=== PATIENT | female | born 1935 | race Two or more races ===

== ENCOUNTER 2019-09-20 21:11 | Emergency (ER) | payer OTHER ==
[~2019-09-20] VITALS: Ht 167.6 cm; Wt 68.9 kg
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
[2019-09-20 21:50] LABS: BASOPHILS % (AUTO) 0.6 % (0.0-2.0); EOSINOPHILS % (AUTO) 0.6 % (0.0-6.0); HEMATOCRIT 27 % (33-45); HEMOGLOBIN 8.7 g/dL (11.5-14.8); LYMPHOCYTES # (AUTO) 1.6 /CMM (0.8-4.8); LYMPHOCYTES % (AUTO) 36.2 % (20.0-44.0); MEAN CORPUSCULAR HGB CONC 32 g/dl (31.0-36.0); MEAN CORPUSCULAR VOLUME 84 fL (82-100); MONOCYTES # (AUTO) 0.4 /CMM (0.1-1.30); MONOCYTES % (AUTO) 9.3 % (2.0-12.0); NEUTROPHILS # (AUTO) 2.4 /CMM (1.8-8.9); NEUTROPHILS % (AUTO) 53.3 % (43.0-81.0); PLATELET COUNT (AUTO) 178 /CMM (150-450); RED BLOOD CELL COUNT(AUTO) 3.23 MIL/uL (4.0-5.2); WHITE BLOOD COUNT (AUTO) 4.5 K/uL (4.3-11.0)
--- NOTE | 2019-09-20 21:56 | NUR ---
PT IS GOING TO [place] [facility].
[2019-09-20 22:04] LABS: ALANINE AMINOTRANSFERASE 20 U/L (12-78); ALBUMIN 3.5 g/dL (3.4-5.0); ALKALINE PHOSPHATASE 66 U/L (46-116); ASPARTATE AMINOTRANSFERASE 18 U/L (15-37); BILIRUBIN,DIRECT 0.1 mg/dL (0.0-0.2); BILIRUBIN,TOTAL 0.2 mg/dL (0.2-1.0); CALCIUM, SERUM 8.6 mg/dL (8.5-10.1); CARBON DIOXIDE 23 mmol/L (21-32); CHLORIDE 103 mmol/L (98-107); CREATININE 1.9 mg/dL (0.6-1.3); GLUCOSE 146 mg/dL (74-106); POTASSIUM 6.1 mmol/L (3.5-5.1); SODIUM SERUM 134 mmol/L (136-145); TOTAL PROTEIN, SERUM 7.3 g/dL (6.4-8.2); UREA NITROGEN, BLOOD 41 mg/dL (7-18)
--- NOTE | 2019-09-20 22:16 | NUR ---
PT RETURNED FROM [place]. PT REQUESTED A DRINK OF WATER. PT REC'D 8 OZ OF WATER AND TOLERATED PO WELL.
[2019-09-20] MEDS ORDERED: METOPROLOL TARTRATE INJ 5 MG/5 ML AMPUL ONE (22:40)
[2019-09-20] MEDS ORDERED: METOPROLOL TARTRATE INJ 5 MG/5 ML AMPUL IV ONE (23:00)
--- NOTE | 2019-09-20 23:32 | NUR ---
2 PATIENT'S SON AT BEDSIDE
[2019-09-21] MEDS ORDERED: SODIUM POLYSTYRENE SULFONATE 15 G/60 ML BOTTLE RC ONE
[2019-09-21] MEDS ORDERED: SODIUM POLYSTYRENE SULFONATE 15 G/60 ML BOTTLE ONE (00:02)
--- NOTE | 2019-09-21 00:19 | NUR ---
KARLOS PHONE NUMBER [phone]
--- NOTE | 2019-09-21 03:18 | NUR ---
PER PAO: WAITING FOR [facility]NA[facility] TO ASSIGN BED AND REVIEW CLINICAL PACKET. WILL RETURN CALL SOON WITH MORE INFORMATION
--- NOTE | 2019-09-21 04:12 | NUR ---
ACCEPTED TO [facility]. [facility] RM [id number] NUMBER FOR REPORT [phone] ACCEPTING MD:[email or web address].
--- NOTE | 2019-09-21 04:49 | NUR ---
REPORT GIVEN TO RYDER
[2019-09-21 04:50] VITALS: BP 144/77
--- NOTE | 2019-09-21 05:40 | NUR ---
pt picked up by nathaniel
== END 2019-09-21 07:28 | disposition short-term general hospital (02) ==
LOC: ER 21:11
DX: R55 Syncope and collapse (principal); E87.5 Hyperkalemia; Z85.028 Personal history of other malignant neoplasm of stomach
CPT/HCPCS: 36415; 70450; 71045; 80048; 80076; 82962; 84484; 85025; 85730; 87081; 93005; 96374; 99285; J3490